=== PATIENT | female | born 1990 | race Hispanic/Latino ===

== ENCOUNTER 2020-11-21 14:50 | Day surgery (SDC) | payer OTHER ==
[2020-11-21] MEDS ORDERED: Ondansetron PF 4 MG/2 ML Vial IVP PRN (14:54)
[2020-11-21] MEDS ORDERED: hydrALAZINE 20 MG/ML VIAL SLOW IVP PRN (14:54)
[2020-11-21 16:02] LABS: Hemoglobin 12.3 g/dL (12.0-15.5); Mean Corpuscular Hemoglobin 29.4 pg (27.0-33.0); Mean Corpuscular Volume 86.6 fl (81.6-98.3); Mean Platelet Volume 11.4 fl (7.4-10.4); Platelet Count 238 10x3/uL (150-450); RBC Distribution Width 12.7 % (11.5-14.5); Red Blood Cell (RBC) Count 4.18 10x6/uL (3.90-5.03); White Blood Cell (WBC) Count 8.4 10x3/uL (3.5-10.5)
[2020-11-21] MEDS ORDERED: Acetaminophen 500 MG TAB PO SCH (16:30)
[2020-11-21 16:33] LABS: ALT (SGPT) 10 U/L (8-55); Alkaline Phosphatase 137 U/L (40-110); Anion Gap 15 mmol/L (10-20); BUN (Urea Nitrogen) 7 mg/dL (7.0-18.7); Chloride 108 mmol/L (98-107); Globulin 3.2 g/dL (2.4-3.5); Potassium 3.9 mmol/L (3.5-5.1); Sodium 138 mmol/L (136-145)
[2020-11-21] MEDS ORDERED: Acetaminophen 500 MG TAB PO PRN (16:49)
[2020-11-21 17:26] LABS: Creatinine, Urine 68.34 mg/dL (47-110); Protein, Urine Random Quant Less than 10 mg/dL (1-14)
[2020-11-21 17:26] LABS: AST (SGOT) 14 U/L (5-34); Bilirubin, Total 0.2 mg/dL (0.2-1.2); Calc. Creatinine Clearance 0 mL/min (70-130); Calcium 8.7 mg/dL (7.8-10.44); Carbon Dioxide 19 mmol/L (22-29); Glucose 122 mg/dL (70-105); Protein, Total 6.2 g/dL (6.0-8.3)
== END 2020-11-21 18:06 | disposition home or self-care (01) ==
LOC: CSHSDC 14:50 → CSHLD/OP 18:06
PROVIDERS: ATTEND Obstetrics & Gynecology
DX: O99.891 Other specified diseases and conditions complicating pregnancy (principal); R03.0 Elevated blood-pressure reading, without diagnosis of hypertension; R51.9 Headache, unspecified; Z3A.38 38 weeks gestation of pregnancy; Z79.82 Long term (current) use of aspirin
CPT/HCPCS: 80053; 82570; 84156; 85027; 99283